=== PATIENT | female | born 1950 | race Caucasian/White ===

== ENCOUNTER → 2017-02-05 | Outpatient (CLI) | payer OTHER ==
[~2017-02-05] MED LIST: CEFADROXIL500 M1 PO; CLARITIN10 MG PO; CORDROL20 MG PO; DUONEB 3 MG/3 ML3 M1 INH; ENALAPRIL20 MG PO; ENALAPRIL5 MG PO; FLUOXETINE20 MG PO; LEVOFLOXACIN500 MG PO; LOVASTATIN10 MG PO; LOVASTATIN20 MG PO; MEDROL DOSEPAK4 MG PO; METFORMIN500 MG PO; MOTRIN800 MG PO; NEBULIZER DEVI; NICODERM C21 MG/24 H TD; OXYGEN NAS; PHENERGAN25 M3 PO; PREDNISONE10 MG PO; PROVENTIL0.09 MG/AC IH; ROBITUSSIN AC 110 ML PO; SYMBICORT1 AE1 INH; TYLENOL W/CODEI1 TA2 PO; VIBRAMYCIN100 MG PO; VICODIN 5/500 505 MG PO; XANAX0.25 MG PO; ZANTAC15 MG/ML PO; ZITHROMAX Z PA250 MG PO; ZOLOFT100 MG PO
== END | disposition home or self-care (01) ==
LOC: RAD 13:56
DX: M17.12 Unilateral primary osteoarthritis, left knee (principal); M25.762 Osteophyte, left knee

== ENCOUNTER 2017-02-13 15:08 | Emergency (ER) | payer OTHER ==
[~2017-02-13] VITALS: Ht 167.6 cm; Wt 98.0 kg
[~2017-02-13 15:08] MED LIST changes: -BACTRIM DS 8001 TA1 PO; -BUSPIRONE HCL10 MG PO; -CEPHALEXIN500 M1 PO; -NEURONTIN300 MG PO; -NORCO 5-325 TA1 EACH PO; -ZOFRAN ODT4 MG SL
[2017-02-13 15:22] VITALS: BP 138/76
[2017-02-13] MEDS ORDERED: BUSPIRONE HCL10 MG PO (15:23)
[2017-02-13] MEDS ORDERED: NEURONTIN300 MG PO (15:23)
[2017-02-13] MEDS ORDERED: ZOFRAN ODT4 MG SL (15:41)
[2017-02-13] MEDS ORDERED: CEPHALEXIN500 M1 PO (15:41)
== END 2017-02-13 15:51 | disposition home or self-care (01) ==
LOC: ED 15:08
DX: L02.512 Cutaneous abscess of left hand (principal); I10 Essential (primary) hypertension; E11.9 Type 2 diabetes mellitus without complications; J45.909 Unspecified asthma, uncomplicated; F17.200 Nicotine dependence, unspecified, uncomplicated; Z79.899 Other long term (current) drug therapy

== ENCOUNTER → 2017-02-13 | Outpatient (CLI) | payer OTHER ==
[~2017-02-13] MED LIST changes: +BACTRIM DS 8001 TA1 PO; +BUSPIRONE HCL10 MG PO; +CEPHALEXIN500 M1 PO; +NEURONTIN300 MG PO; +NORCO 5-325 TA1 EACH PO; +ZOFRAN ODT4 MG SL
== END | disposition home or self-care (01) ==
LOC: MAMMO 02:33
DX: Z12.31 Encounter for screening mammogram for malignant neoplasm of breast (principal)

== ENCOUNTER 2017-02-15 18:01 | Emergency (ER) | payer OTHER ==
[~2017-02-15] VITALS: Ht 170.1 cm; Wt 98.0 kg
[~2017-02-15 18:01] MED LIST changes: +BUSPIRONE HCL10 MG PO; +CEPHALEXIN500 M1 PO; +NEURONTIN300 MG PO; +ZOFRAN ODT4 MG SL
[2017-02-15] MEDS ORDERED: BACTRIM DS 8001 TA1 PO (19:47)
[2017-02-15] MEDS ORDERED: NORCO 5-325 TA1 EACH PO (19:47)
[2017-02-15 21:01] VITALS: BP 181/77
== END 2017-02-15 20:58 | disposition home or self-care (01) ==
LOC: ED 18:01
DX: L02.512 Cutaneous abscess of left hand (principal); F17.200 Nicotine dependence, unspecified, uncomplicated; Z90.49 Acquired absence of other specified parts of digestive tract; Z79.899 Other long term (current) drug therapy

== ENCOUNTER 2017-08-30 21:43 | Emergency (ER) | payer OTHER ==
[~2017-08-30] VITALS: Ht 165.1 cm; Wt 99.8 kg
[~2017-08-30 21:43] MED LIST changes: +BACTRIM DS 8001 TA1 PO; +NORCO 5-325 TA1 EACH PO
[2017-08-30 22:38] LABS: HEMATOCRIT 39.6 % (37.0-47.0); HEMOGLOBIN 12.8 g/dl (12.0-16.0); MEAN CELL VOLUME 87.2 fl (81.0-99.0); MEAN CORPUSCULAR HGB 28.2 pg (27.0-31.0); MEAN CORPUSCULAR HGB CONC 32.3 g/dl (33.0-37.0); MEAN PLATELET VOLUME 11.8 fl (9.6-12.3); PLATELET COUNT AUTOMATED 147 10*3/uL (130-400); RED BLOOD COUNT 4.54 10*6/uL (4.10-5.10); RED CELL DISTRI WIDTH 14.6 % (0-14.5); WHITE BLOOD COUNT 5.9 10*3/uL (4.8-10.8)
[2017-08-30 22:52] LABS: ALBUMIN 3.5 gm/dl (3.1-4.5); CREATININE 1.75 mg/dL (0.55-1.02); POTASSIUM 4.4 mmol/L (3.5-5.1); TOTAL PROTEIN 6.9 gm/dL (6.4-8.2)
[2017-08-30 23:04] LABS: ATYPICAL LYMPHS 14 % (0-0); TOTAL CELLS COUNTED 100 #CELLS
[2017-08-31] MEDS ORDERED: VIBRAMYCIN100 MG PO (00:24)
[2017-08-31] MEDS ORDERED: DELTASONE20 M1 PO (00:24)
[2017-08-31 00:49] VITALS: BP 105/50
[2017-08-31 08:50] LABS: PLATELET SUFFICIENCY NORMAL (NORMAL)
== END 2017-08-31 00:53 | disposition home or self-care (01) ==
LOC: ED 21:43
PROVIDERS: Physician Assistant
DX: J44.1 Chronic obstructive pulmonary disease with (acute) exacerbation (principal); F17.200 Nicotine dependence, unspecified, uncomplicated; Z90.49 Acquired absence of other specified parts of digestive tract; Z79.899 Other long term (current) drug therapy; Z99.81 Dependence on supplemental oxygen

== ENCOUNTER → 2018-01-01 | Outpatient (CLI) | payer OTHER ==
[~2018-01-01] MED LIST changes: +DELTASONE20 M1 PO
--- NOTE | ~2018-01-01 | PF ---
[place], [place] PULMONARY FUNCTION TEST NAME: NELSON SHELTON UNIT #: [id number] ROOM: DOCTOR: ANA ROSA BASS MD,KASEY BIRTHDATE: [birth year] DOS: 01/01/2018 The test was ordered by Citlalli Murrieta, nurse practitioner. HISTORY: The patient noted as 67-year-old outpatient, female, height of 65 inches, weight of 216 pounds with BMI 34.3. Testing was done for assessment of COPD with ongoing symptoms of shortness of breath with exertion, productive cough, frequent wheezing, active tobacco use was noted for the last 49 years of 1.5 pack of cigarettes per day. SPIROMETRY: The FVC was recorded 1.33 liters, 44% predicted value. The FEV1 was noted at 0.81 liters at 35% of the predicted value post-bronchodilator. FEV1/FVC recorded 59%. Flow volume loop was noted with finding of obstructive lung disease. Spirometry is noted consistent with severe COPD. LUNG VOLUME: Thoracic gas volume recorded 133%, residual volume 169%, total lung capacity 100%. RV/TLC ratio 168%. The lung volume for the patient was noted consistent with moderate air trapping. The patient's lung diffusion was noted as 56% without correction of carbon monoxide hemoglobin values. The patient's airway resistance and passive conductance noted abnormal. FINAL IMPRESSION: The test was noted consistent finding of severe chronic obstructive pulmonary disease with possibility of emphysema would be considered. Air trapping noted in the lung volumes. KASEY OSEGUERA MD CM:PFREPORT:PULMONARY FUNCTION TEST [id number] KASEY BASS MD
== END | disposition home or self-care (01) ==
LOC: CP 10:16
DX: J44.9 Chronic obstructive pulmonary disease, unspecified (principal); N18.9 Chronic kidney disease, unspecified

== ENCOUNTER → 2018-01-29 | Outpatient (CLI) | payer OTHER ==
[2018-01-29 10:21] LABS: HEMATOCRIT 42.2 % (37.0-47.0)
[2018-01-29 10:24] LABS: BILIRUBIN NEGATIVE (NEGATIVE); BLOOD TRACE-LYSED (NEGATIVE); CLARITY CLOUDY (CLEAR); COLOR YELLOW (YELLOW); GLUCOSE NEGATIVE (NEGATIVE); KETONE NEGATIVE (NEGATIVE); LEUKO ESTERASE 3+ (NEGATIVE); NITRITE NEGATIVE (NEGATIVE); SPECIFIC GRAVITY <= 1.005 (1.005-1.030); UROBILINOGEN 0.2 E.U./dl (0.2-1.0)
[2018-01-29 10:45] LABS: BUN 17 mg/dl (7-24); CHLORIDE 102 mmol/L (98-107); CREATININE 0.92 mg/dL (0.55-1.02); PHOSPHOROUS 3.5 mg/dL (2.5-4.9); POTASSIUM 4.4 mmol/L (3.5-5.1); SODIUM 139 mmol/L (136-145)
[2018-01-29 10:51] LABS: BACTERIA 3+; EPITHELIAL CELLS TNTC; WBC TNTC wbc/hpf (0-5)
[2018-01-29 12:12] LABS: PTH INTACT 83.5 pg/mL (14.0-72.0)
== END | disposition home or self-care (01) ==
LOC: LAB 09:16 → US 10:00
PROVIDERS: Internal Medicine Nephrology
DX: N18.9 Chronic kidney disease, unspecified (principal); E55.9 Vitamin D deficiency, unspecified

== ENCOUNTER 2018-08-31 15:29 | Inpatient (IN) | payer OTHER ==
[~2018-08-31] VITALS: Ht 167.6 cm; Wt 95.1 kg
--- NOTE | ~2018-08-31 | PR ---
[place], [place] PROGRESS NOTE NAME: NELSON SHELTON [facility]: [id number] UNIT #: [id number] ROOM: 405 DOCTOR: ANA ROSA BASS MD,KASEY BIRTHDATE: [birth year] DOS: 09/02/2018 PULMONARY PROGRESS NOTE SUBJECTIVE: She has been showing continued progressive reduction and improvement in the respiratory symptom at this time. Coughing has been improving. There were no symptoms of chest pain. The patient denies symptoms of fever or chills. OBJECTIVE: VITAL SIGNS: Which has been recorded for the patient shows normal temperature. The respiratory rate 18, heart rate 80, blood pressure 149/59. Pulse oxygen saturation recorded as 95% saturation on 2 liters nasal cannula. HEENT: Examination shows no acute change. NECK: Supple. CARDIOVASCULAR: S1, S2 audible. LUNGS: The patient was noted without any wheezing or crackles this morning. ABDOMEN: Soft, nontender. Bowel sounds present. EXTREMITIES: Without any acute edema. IMPRESSION: The patient with acute bronchitis was noted at this present time responding to treatment with bronchial asthma or chronic obstructive pulmonary disease exacerbation. Chronic nicotine dependence, heavy nicotine abuse. PLAN OF TREATMENT: The patient could be considered for home discharge. Upright with tapering prednisone and antibiotic as necessary. Outpatient follow up would be suggestive as well. KASEY OSEGUERA MD CM:PNTRANS [id number] KASEY BASS MD 09/09/18 1130 interface
--- NOTE | ~2018-08-31 | CON ---
[place], [place] REPORT OF CONSULTATION NAME: NELSON SHELOTN UNIT #: [id number] ROOM: 405 DOCTOR: ANA ROSA BASS MDKASEY BIRTHDATE: [birth year] DOS: 09/01/2018 PULMONARY CONSULTATION, EVALUATION, AND MANAGEMENT CONSULTATION REQUESTED BY: Hospitalist services. REASON FOR CONSULTATION: For the assessment of current ongoing acute respiratory complaints with exacerbation of chronic obstructive pulmonary disease. HISTORY OF PRESENT ILLNESS: This is a 68-year-old white female patient with past history of COPD and nicotine dependence. The patient presented to the hospital as the patient reported symptoms are progressed with increased symptoms of shortness of breath associated with increased coughing, chest congestion after the cold attack for the last few days. The symptoms are noted rapidly progressed in the last couple of days requiring assessment in the hospital. She has been admitted to the hospital for the further medical management. Denies symptoms of chest pain or hemoptysis, recurrent symptoms. Symptoms are noted somewhat decreased in the last 24 hours. PAST MEDICAL HISTORY: Reported: 1. COPD. 2. Bronchial asthma, severity unknown. 3. Type 2 diabetes mellitus. 4. Essential hypertension. 5. Hyperlipidemia. 6. Chronic nicotine dependence. 7. Moderate obesity. PAST SURGICAL HISTORY: She has appendectomy. HOME MEDICATIONS: The home medications listed use of Xanax, Symbicort, BuSpar, enalapril, nebulized bronchodilator as DuoNeb, lovastatin, and metformin. ALLERGIES: No known drug allergies. SOCIAL HISTORY: The patient stated she is single, has no children, lives at home. Tobacco use noted since teens as 1-1/2 pack of cigarettes per day. Denies history of alcohol use or illicit drug use. FAMILY HISTORY: Reported for coronary artery disease. REVIEW OF SYSTEMS: CONSTITUTIONAL SYMPTOMS: Fatigue and tiredness reported. Denies symptoms of fever or chills. EYES: Denies burning, redness, or tenderness. EARS, NOSE, AND THROAT SYMPTOMS: No sore throat, hoarseness, otalgia, postnasal drainage, or epistaxis. CARDIOVASCULAR SYSTEM: Denies anginal pain, edema, or pain of the lower extremities. [place], [place] REPORT OF CONSULTATION NAME: NELSON SHELTON UNIT #: [id number] ROOM: 405 DOCTOR: ANA ROSA BASS MD,KASEY BIRTHDATE: [birth year] GASTROINTESTINAL SYMPTOMS: No dysphagia, nausea, vomiting, diarrhea, abdominal pain, hematemesis, melena, or hematochezia. SKIN: Denies abnormal lesions or rashes. GENITOURINARY SYMPTOMS: No dysuria, urinary incontinence, or hematuria. MUSCULOSKELETAL SYMPTOMS: No acute joint pain, redness, or tenderness. CENTRAL NERVOUS SYSTEM: Denies any tingling sensation of extremities, seizures, diplopia, headache, or migraines. Remaining systems were reviewed and they were noted all negative. PHYSICAL EXAMINATION: GENERAL: This is a 68-year-old white female patient currently sitting on the side of the bed, no acute distress this afternoon of assessment. Height of 5 feet 6 inches, weight of 209 pounds, and BMI of 33.8. VITAL SIGNS: Normal temperature, respiratory rate of 18-22, heart rate of 105-88, blood pressure of 145/55-133/69, and the pulse oxygen saturation recorded on 2 liters nasal cannula is 93% saturation and on room air is 91% saturation. HEENT: On examination, head was atraumatic. Eyes: No icterus. NECK: Supple. CARDIOVASCULAR SYSTEM: Decreased posterior pharyngeal space with high-tongue with crowding of soft tissue structures. S1, S2 is audible. LUNGS: General reduction of breath sounds, [id number] expiratory wheezing, no crackles. ABDOMEN: Soft, obese, nontender. Bowel sounds present. EXTREMITIES: No edema. VISIBLE SKIN: No lesions or rashes. MUSCULOSKELETAL: Without acute deformities. CENTRAL NERVOUS SYSTEM: Cranial nerves 2-12 intact. LABORATORY DATA: Influenza A and B nasal washing antigen negative on admission. CBC of yesterday on admission, WBC count was normal. The eosinophils were elevated as 3.8% with normal hemoglobin, hematocrit, and platelet count. Lactic acid is 2.5 on admission, followed 1.8. CMP of the patient on 08/31/2018, glucose is 186, BUN is 18, and creatinine is 1.12. Remaining CMP and troponin were normal. The PT and PTT are normal this morning. CBC this morning, hemoglobin is 11.4, WBC count is normal, and platelet count was normal. The BMP that was done this morning normal BUN and creatinine, glucose is 193. IMAGING DATA: Chest x-ray was completed on admission, just one view was taken, does not show any acute pulmonary infiltration. Chest x-ray reviewed from the PACS images. IMPRESSION: 1. The patient has been admitted to the hospital with acute upper respiratory tract symptoms, later on developed acute bronchitis, exacerbation of bronchial asthma, and chronic obstructive pulmonary disease. Possible consideration of eosinophilic type bronchial asthma would be considered as well. 2. Long-term heavy tobacco use up to 1.5 packs of cigarettes per day. PLAN OF MANAGEMENT: The patient would be continued on the bronchodilators as [place], [place] REPORT OF CONSULTATION NAME: NELSON SHELTON UNIT #: [id number] ROOM: 405 DOCTOR: ANA ROSA BASS MD,KASEY BIRTHDATE: [birth year] ordered. Oxygen supplementation to be continued for this patient if necessary. Solu-Medrol currently received by the patient at 40 mg 3 times a day that will be continued. Assess the patient tomorrow morning and possible home discharge depends on further improvement of respiratory symptoms to be determined. Abstinence of tobacco use was considered as well as counseling about tobacco cessation was also made. Possible consideration of assessment of sleep apnea disorder with current body habitus as well. Thanks for allowing me to participate in the care of this patient. KASEY OSEGUERA MD CM:CONSTR:REPORT OF CONSULTATION 1450 09/02/18 0059 interface
--- NOTE | ~2018-08-31 | EKG ---
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
[2018-08-31 15:32] VITALS: BP 145/55
[2018-08-31 16:10] LABS: BASO % 0.5 % (0.0-1.0); EOS # 0.2 10*3/uL (0.0-0.4); EOS % 3.8 % (1.0-4.0); HEMATOCRIT 42.1 % (37.0-47.0); HEMOGLOBIN 13.7 g/dl (12.0-16.0); LYMPH # 1.5 10*3/uL (1.3-4.4); MEAN CELL VOLUME 93.3 fl (81.0-99.0); MEAN CORPUSCULAR HGB 30.4 pg (27.0-31.0); MEAN CORPUSCULAR HGB CONC 32.5 g/dl (33.0-37.0); MEAN PLATELET VOLUME 11.6 fl (9.6-12.3); MONO # 0.5 10*3/uL (0.1-1.0); MONO % 8.5 % (3.0-9.0); NEUT # 3.9 10*3/uL (2.3-7.9); NEUT % 62.9 % (47.0-73.0); PLATELET COUNT AUTOMATED 199 10*3/uL (130-400); RED BLOOD COUNT 4.51 10*6/uL (4.10-5.10); RED CELL DISTRI WIDTH 13.3 % (0-14.5); WHITE BLOOD COUNT 6.3 10*3/uL (4.8-10.8)
[2018-08-31 16:17] VITALS: BP 128/49
[2018-08-31 16:36] LABS: ALBUMIN 3.8 gm/dl (3.1-4.5); ALKALINE PHOSPHATASE 106 U/L (45-117); BUN 18 mg/dl (7-24); CHLORIDE 102 mmol/L (98-107); CREATININE 1.12 mg/dL (0.55-1.02); POTASSIUM 4.6 mmol/L (3.5-5.1); SGOT/AST 20 IU/L (3-35); SGPT/ALT 30 U/L (12-78); SODIUM 139 mmol/L (136-145); TOTAL PROTEIN 7.2 gm/dL (6.4-8.2)
[2018-08-31 16:38] LABS: TROPONIN I < 0.015 ng/ml (<0.045)
[2018-08-31 16:59] VITALS: BP 131/52
[2018-08-31 17:33] VITALS: BP 127/57
[2018-08-31 20:00] VITALS: BP 143/48
[2018-09-01] VITALS: BP 154/53
[2018-09-01 05:56] LABS: BASO % 0.2 % (0.0-1.0); HEMATOCRIT 38.2 % (37.0-47.0); HEMOGLOBIN 11.9 g/dl (12.0-16.0); LYMPH # 0.7 10*3/uL (1.3-4.4); MEAN CELL VOLUME 95.7 fl (81.0-99.0); MEAN CORPUSCULAR HGB 29.8 pg (27.0-31.0); MEAN CORPUSCULAR HGB CONC 31.2 g/dl (33.0-37.0); MEAN PLATELET VOLUME 11.1 fl (9.6-12.3); MONO # 0.2 10*3/uL (0.1-1.0); NEUT # 5.4 10*3/uL (2.3-7.9); NEUT % 84.9 % (47.0-73.0); PLATELET COUNT AUTOMATED 190 10*3/uL (130-400); RED BLOOD COUNT 3.99 10*6/uL (4.10-5.10); RED CELL DISTRI WIDTH 13.2 % (0-14.5); WHITE BLOOD COUNT 6.4 10*3/uL (4.8-10.8)
[2018-09-01 06:16] LABS: ACT PARTIAL THROMBO TIME 23.4 SECONDS (20.8-31.5)
[2018-09-01 06:32] LABS: BUN 18 mg/dl (7-24); CHLORIDE 105 mmol/L (98-107); CHOLESTEROL 125 mg/dL (<200); CREATININE 0.91 mg/dL (0.55-1.02); PHOSPHOROUS 3.3 mg/dL (2.5-4.9); POTASSIUM 5.1 mmol/L (3.5-5.1); SODIUM 137 mmol/L (136-145); TRIGLYCERIDES 60 mg/dl (<150); VLDL CHOLESTEROL 12 mg/dL (6-40)
[2018-09-01 06:40] LABS: HDL CHOLESTEROL 53 mg/dl (40-60); LDL CHOLESTEROL 60 mg/dL (9-159); THYROID STIM HORMONE (HS) 0.452 uIU/ml (0.358-4.75)
[2018-09-01 08:00] VITALS: BP 133/69
[2018-09-01 12:00] VITALS: BP 140/60
[2018-09-01] MEDS ORDERED: ELAVIL75 MG PO (15:14)
[2018-09-01] MEDS ORDERED: GLIPIZIDE10 M2 PO (15:15)
[2018-09-01] MEDS ORDERED: LIPITOR40 MG PO (15:16)
[2018-09-01] MEDS ORDERED: VASOTEC20 MG PO (15:17)
[2018-09-01] MEDS ORDERED: EFFEXOR XR150 M1 PO (15:18)
[2018-09-01] MEDS ORDERED: XANAX0.5 MG PO (15:18)
[2018-09-01 16:00] VITALS: BP 140/50
[2018-09-01 20:00] VITALS: BP 147/51
[2018-09-01 21:30] VITALS: BP 112/59
[2018-09-02] VITALS: BP 149/59
[2018-09-02] MEDS ORDERED: AVPAK AZITHROM250 MG PO (08:43)
[2018-09-02] MEDS ORDERED: PREDNISONE10 MG PO (08:43)
== END 2018-09-02 11:50 | disposition home or self-care (01) | DRG 872 ==
LOC: ED 15:29 → EDHOLD 16:24 → 4E 16:24
PROVIDERS: Internal Medicine; Nurse Practitioner Family; ADMIT Internal Medicine
DX: A41.9 Sepsis, unspecified organism (principal); J44.1 Chronic obstructive pulmonary disease with (acute) exacerbation; E87.2 Acidosis; N17.9 Acute kidney failure, unspecified; J44.0 Chronic obstructive pulmonary disease with (acute) lower respiratory infection; J45.901 Unspecified asthma with (acute) exacerbation; R65.20 Severe sepsis without septic shock; E87.8 Other disorders of electrolyte and fluid balance, not elsewhere classified; I10 Essential (primary) hypertension; F17.210 Nicotine dependence, cigarettes, uncomplicated; E11.40 Type 2 diabetes mellitus with diabetic neuropathy, unspecified; E78.5 Hyperlipidemia, unspecified; E66.9 Obesity, unspecified; E55.9 Vitamin D deficiency, unspecified; E53.8 Deficiency of other specified B group vitamins; Z99.81 Dependence on supplemental oxygen; Z82.49 Family history of ischemic heart disease and other diseases of the circulatory system; Z90.49 Acquired absence of other specified parts of digestive tract; Z71.6 Tobacco abuse counseling; J20.9 Acute bronchitis, unspecified; Z68.33 Body mass index [BMI] 33.0-33.9, adult; Z80.8 Family history of malignant neoplasm of other organs or systems

== ENCOUNTER → 2019-03-05 | Outpatient (CLI) | payer OTHER ==
[~2019-03-05] MED LIST changes: +AVPAK AZITHROM250 MG PO; +EFFEXOR XR150 M1 PO; +ELAVIL75 MG PO; +GLIPIZIDE10 M2 PO; +LIPITOR40 MG PO; +VASOTEC20 MG PO; +XANAX0.5 MG PO
== END | disposition home or self-care (01) ==
LOC: MAMMO 07:59
DX: Z12.31 Encounter for screening mammogram for malignant neoplasm of breast (principal)

== ENCOUNTER → 2020-12-24 | Outpatient (CLI) | payer OTHER ==
[~2020-12-24] MED LIST changes: +CLINDAMYCIN HC300 MG PO; +MAGNESIUM OXID400 MG PO; +PERCOCET 5-3251 EACH PO; +VITAMIN B-121000 MC2 PO
== END | disposition home or self-care (01) ==
LOC: COVID19 11:16
PROVIDERS: ATTEND Surgery
DX: Z01.812 Encounter for preprocedural laboratory examination (principal); Z20.822 Contact with and (suspected) exposure to COVID-19

== ENCOUNTER → 2020-12-27 | Day surgery (SDC) | payer OTHER ==
[~2020-12-27] VITALS: Ht 170.1 cm; Wt 90.3 kg
[2020-12-27 07:30] VITALS: BP 150/76
[2020-12-27 09:08] VITALS: BP 116/59
[2020-12-27 09:26] VITALS: BP 118/56
[2020-12-27 09:38] VITALS: BP 131/57
[2020-12-27 10:10] VITALS: BP 167/68
== END | disposition home or self-care (01) ==
LOC: SDC 12-22 13:15
PROVIDERS: ATTEND Surgery
DX: L72.3 Sebaceous cyst (principal); L72.0 Epidermal cyst; I10 Essential (primary) hypertension; E11.9 Type 2 diabetes mellitus without complications; E78.5 Hyperlipidemia, unspecified; K21.9 Gastro-esophageal reflux disease without esophagitis; J44.9 Chronic obstructive pulmonary disease, unspecified; F32.9 Major depressive disorder, single episode, unspecified; F17.210 Nicotine dependence, cigarettes, uncomplicated; Z79.899 Other long term (current) drug therapy

== ENCOUNTER → 2021-01-17 | Outpatient (CLI) | payer OTHER | END | disposition home or self-care (01) | LOC: MAMMO 10:03 | PROVIDERS: ATTEND Internal Medicine | DX: Z12.31 Encounter for screening mammogram for malignant neoplasm of breast (principal) ==

== ENCOUNTER 2022-02-23 12:22 | Inpatient (IN) | payer MEDICARE ==
[~2022-02-23] VITALS: Ht 167.6 cm; Wt 84.9 kg
[~2022-02-23 12:22] MED LIST changes: +METFORMIN HYDR500 MG PO; -METFORMIN500 MG PO
[2022-02-23 12:42] VITALS: BP 150/68
[2022-02-23 14:03] LABS: BASO # 0.1 10*3/uL (0.0-0.1); BASO % 0.4 % (0.0-1.0); EOS # 0.1 10*3/uL (0.0-0.4); EOS % 0.6 % (1.0-4.0); HEMATOCRIT 38.9 % (37.0-47.0); LYMPH # 1.8 10*3/uL (1.3-4.4); LYMPH % 13.7 % (27.0-41.0); MEAN CELL VOLUME 84.7 fl (81.0-99.0); MEAN CORPUSCULAR HGB 26.1 pg (27.0-31.0); MEAN CORPUSCULAR HGB CONC 30.8 g/dl (33.0-37.0); MONO # 1.2 10*3/uL (0.1-1.0); MONO % 9.2 % (3.0-9.0); NEUT # 9.8 10*3/uL (2.3-7.9); NEUT % 75.6 % (47.0-73.0); PLATELET COUNT AUTOMATED 271 10*3/uL (130-400); RED BLOOD COUNT 4.59 10*6/uL (4.10-5.10); RED CELL DISTRI WIDTH 15.1 % (0-14.5)
[2022-02-23 14:21] LABS: CREATININE 1.6 mg/dL (0.55-1.02); POTASSIUM 5.4 mmol/L (3.5-5.1); TOTAL PROTEIN 7.1 gm/dL (6.4-8.2)
[2022-02-23 14:22] LABS: ACT PARTIAL THROMBO TIME 27.4 SECONDS (20.0-32.1); INTERNATIONAL NORM RATIO 1.1 (2.0-3.5)
[2022-02-23 16:30] VITALS: BP 125/43
[2022-02-23 17:30] VITALS: BP 112/52
[2022-02-23 17:39] VITALS: BP 128/50
[2022-02-23] MEDS ORDERED: HYDROXYZINE PAM25 M1 PO (19:51)
[2022-02-23] MEDS ORDERED: MELOXICAM15 MG PO (19:53)
[2022-02-23] MEDS ORDERED: ROPINIROLE HYDRO1 MG PO (19:55)
[2022-02-23] MEDS ORDERED: OMEPRAZOLE MAGN20 MG PO (19:55)
[2022-02-23] MEDS ORDERED: TOPCARE ARTHRI650 MG PO (19:56)
[2022-02-23 20:00] VITALS: BP 139/59
[2022-02-23 21:04] LABS: BILIRUBIN Negative (Negative); BLOOD Negative (Negative); CLARITY Clear (Clear); COLOR Yellow (Yellow); GLUCOSE Negative (Negative); KETONE Trace (Negative); LEUKO ESTERASE 1+ (Negative); NITRITE Negative (Negative); PH 5.5 (4.5-8.0); SPECIFIC GRAVITY 1.015 (1.001-1.030); UROBILINOGEN 0.2 E.U./dl (0.0-1.0)
[2022-02-23 21:15] LABS: BACTERIA 1+; EPITHELIAL CELLS 16-20; FINE GRANULAR CAST 0-2
[2022-02-24] VITALS: BP 115/58
[2022-02-24 06:00] LABS: CREATININE 1.25 mg/dL (0.55-1.02); POTASSIUM 5.3 mmol/L (3.5-5.1)
[2022-02-24 06:13] LABS: BASO % 0.1 % (0.0-1.0); HEMATOCRIT 38.5 % (37.0-47.0); LYMPH # 0.6 10*3/uL (1.3-4.4); LYMPH % 6.4 % (27.0-41.0); MEAN CELL VOLUME 86.1 fl (81.0-99.0); MEAN CORPUSCULAR HGB 26.6 pg (27.0-31.0); MEAN CORPUSCULAR HGB CONC 30.9 g/dl (33.0-37.0); MEAN PLATELET VOLUME 11.3 fl (9.6-12.3); MONO # 0.3 10*3/uL (0.1-1.0); MONO % 3.8 % (3.0-9.0); NEUT # 7.9 10*3/uL (2.3-7.9); PLATELET COUNT AUTOMATED 276 10*3/uL (130-400); RED BLOOD COUNT 4.47 10*6/uL (4.10-5.10); RED CELL DISTRI WIDTH 15.1 % (0-14.5); WHITE BLOOD COUNT 8.9 10*3/uL (4.8-10.8)
[2022-02-24 08:00] VITALS: BP 126/54
[2022-02-24 12:00] VITALS: BP 137/64
[2022-02-24 16:00] VITALS: BP 137/70
[2022-02-24 20:00] VITALS: BP 146/63
[2022-02-25] VITALS: BP 150/79
[2022-02-25 05:09] LABS: BUN 29 mg/dl (7-24); CHLORIDE 106 mmol/L (98-107); CREATININE 1.08 mg/dL (0.55-1.02); POTASSIUM 5.9 mmol/L (3.5-5.1); SODIUM 140 mmol/L (136-145)
[2022-02-25 08:00] VITALS: BP 146/69
[2022-02-25 12:00] VITALS: BP 176/96
[2022-02-25 16:00] VITALS: BP 154/75
[2022-02-25 20:00] VITALS: BP 152/76
[2022-02-26] VITALS: BP 147/69
[2022-02-26 05:10] LABS: BUN 25 mg/dl (7-24); CHLORIDE 103 mmol/L (98-107); POTASSIUM 5.1 mmol/L (3.5-5.1); SODIUM 137 mmol/L (136-145)
[2022-02-26 06:31] LABS: HEMATOCRIT 37.2 % (37.0-47.0); MEAN CELL VOLUME 87.7 fl (81.0-99.0); MEAN CORPUSCULAR HGB 25.9 pg (27.0-31.0); MEAN CORPUSCULAR HGB CONC 29.6 g/dl (33.0-37.0); MEAN PLATELET VOLUME 10.7 fl (9.6-12.3); PLATELET COUNT AUTOMATED 313 10*3/uL (130-400); RED BLOOD COUNT 4.24 10*6/uL (4.10-5.10); WHITE BLOOD COUNT 10.5 10*3/uL (4.8-10.8)
[2022-02-26 06:43] LABS: MANUAL DIFF REFLEX YES
[2022-02-26 07:27] LABS: ATYPICAL LYMPHS 1 % (0-0); BURR CELLS FEW; PLATELET SUFFICIENCY NORMAL (NORMAL); TOTAL CELLS COUNTED 100 #CELLS; TOXIC GRANULATION SLIGHT
[2022-02-26 07:28] LABS: OVALOCYTES FEW
[2022-02-26 08:00] VITALS: BP 147/83
[2022-02-26 12:00] VITALS: BP 150/65
[2022-02-26 16:00] VITALS: BP 162/78
[2022-02-26 20:00] VITALS: BP 152/82
[2022-02-27] VITALS: BP 157/69
[2022-02-27 05:50] LABS: BUN 23 mg/dl (7-24); CHLORIDE 100 mmol/L (98-107); POTASSIUM 5.3 mmol/L (3.5-5.1); SODIUM 139 mmol/L (136-145)
[2022-02-27 08:00] VITALS: BP 152/60
[2022-02-27] MEDS ORDERED: LEVOFLOXACIN750 M2 PO (10:50)
[2022-02-27] MEDS ORDERED: PREDNISONE10 MG PO (10:50)
== END 2022-02-27 11:59 | disposition home or self-care (01) | DRG 871 ==
LOC: ED 12:22 → 4E 16:39 → EDHOLD 16:39 → 4E 17:27
PROVIDERS: Emergency Medicine; Internal Medicine; Student in an Organized Health Care Education/Training Program; ADMIT Family Medicine; ATTEND Family Medicine
DX: A41.9 Sepsis, unspecified organism (principal); J18.9 Pneumonia, unspecified organism; J96.01 Acute respiratory failure with hypoxia; N17.0 Acute kidney failure with tubular necrosis; J44.1 Chronic obstructive pulmonary disease with (acute) exacerbation; J44.0 Chronic obstructive pulmonary disease with (acute) lower respiratory infection; Z20.822 Contact with and (suspected) exposure to COVID-19; F41.9 Anxiety disorder, unspecified; J45.909 Unspecified asthma, uncomplicated; E11.40 Type 2 diabetes mellitus with diabetic neuropathy, unspecified; E78.5 Hyperlipidemia, unspecified; I10 Essential (primary) hypertension; E66.9 Obesity, unspecified; R65.20 Severe sepsis without septic shock; E87.5 Hyperkalemia; Z90.49 Acquired absence of other specified parts of digestive tract; Z68.30 Body mass index [BMI] 30.0-30.9, adult